=== PATIENT | female | born 1945 | race Caucasian/White ===

== ENCOUNTER → 2017-01-18 | Outpatient (CLI) | payer MEDICARE, OTHER | END | disposition home or self-care (01) | LOC: GMAJ 10:31 | PROVIDERS: ATTEND Family Medicine | DX: E03.9 Hypothyroidism, unspecified (principal) ==

== ENCOUNTER → 2017-03-06 | Outpatient (CLI) | payer MEDICARE, OTHER | END | disposition home or self-care (01) | LOC: GMAJ 10:45 | PROVIDERS: ATTEND Family Medicine | DX: E03.9 Hypothyroidism, unspecified (principal) ==

== ENCOUNTER → 2017-08-02 | Outpatient (CLI) | payer MEDICARE, OTHER | LOC: GMAJ 15:09 | PROVIDERS: ATTEND Family Medicine | DX: J02.9 Acute pharyngitis, unspecified (principal) ==

== ENCOUNTER → 2018-01-25 | Outpatient (CLI) | payer MEDICARE, OTHER | LOC: GMAJ 10:35 | PROVIDERS: ATTEND Family Medicine | DX: E03.9 Hypothyroidism, unspecified (principal) ==

== ENCOUNTER → 2018-03-13 | Outpatient (CLI) | payer MEDICARE, OTHER | LOC: GMAJ 11:09 | PROVIDERS: ATTEND Family Medicine | DX: E03.9 Hypothyroidism, unspecified (principal) ==

== ENCOUNTER → 2018-04-24 | Outpatient (CLI) | payer MEDICARE, OTHER | LOC: GMAJ 11:26 | PROVIDERS: ATTEND Family Medicine | DX: E03.9 Hypothyroidism, unspecified (principal) ==

== ENCOUNTER → 2018-06-25 | Outpatient (CLI) | payer MEDICARE, OTHER | LOC: GMAJ 10:38 | PROVIDERS: ATTEND Family Medicine | DX: E03.9 Hypothyroidism, unspecified (principal) ==

== ENCOUNTER → 2019-02-25 | Outpatient (CLI) | payer MEDICARE, OTHER | LOC: GMAJ 10:27 | PROVIDERS: ATTEND Family Medicine | DX: E78.00 Pure hypercholesterolemia, unspecified (principal); E03.9 Hypothyroidism, unspecified ==

== ENCOUNTER → 2020-03-04 | Outpatient (CLI) | payer MEDICARE, OTHER | LOC: GMAJ 10:27 | PROVIDERS: ATTEND Family Medicine | DX: E03.9 Hypothyroidism, unspecified (principal); E78.00 Pure hypercholesterolemia, unspecified ==

== ENCOUNTER → 2020-06-25 | Outpatient (CLI) | payer MEDICARE, OTHER ==
--- NOTE | 2020-06-26 13:04 | MRI ---
EXAM DESCRIPTION: Lumbar Spine w/o Contrast : Magnetic Resonance Imaging. CLINICAL HISTORY: OTHER SPONDYLOSIS WITH RADICULOPATHY, LUMBAR REGION COMPARISON: Radiographs lumbar spine June 23 TECHNIQUE: Multiplanar, multiple standard sequences, non contrast MRI, lumbar spine. FINDINGS: L5-S1: The disc is well visualized on axial T2 series 501, image 3. Disc desiccation and minimal disc space loss. Grade 1 anterolisthesis 5 mm. Posterior bulging with superior migration of the uncovered disc. Hypertrophic degenerative changes in the facet joints and posterior flavum ligaments (canal elements). AP canal diameter 7.2 mm. Bilateral foraminal stenosis, more severe on the left. Bilateral effacement of the subarticular recesses, more on the left with encroachment by left facet joint spur. . L4-L5: Disc desiccation with mild right disc space loss and moderate disc space loss on the left. Modic type II endplate changes. Posterior broad-based bulge with endplate and 2.5 mm retrolisthesis. Anterior bulge in the anterior bridging. Moderate narrowing right foramen and left foraminal stenosis. Hypertrophic changes in the bilateral canal limits more on the left with mass effect on the left thecal sac. AP canal diameter 10 mm. L3-L4: Disc desiccation and minimal disc space loss in the midline and to the right. Right paracentral protrusion of the distal 6 mm with inferior extrusion 8 mm to the right of midline effacing the right subarticular recess and abutting the right L4 nerve. Hypertrophic changes in the bilateral canal elements. AP canal diameter 9 mm to the left of midline. Minimal foraminal narrowing on the right and mild foraminal narrowing on the left. L2-L3: Disc desiccation and disc space loss with anterior bulging and endplate ridging. Retrolisthesis 5.5 mm. Disc is migrated inferiorly in the midline abutting the bilateral subarticular recesses. Mild bilateral foraminal narrowing. Hypertrophic changes of the bilateral canal elements. AP canal diameter 9.8 mm. L1-L2: Disc desiccation and minimal disc space loss. Anterior bulging and endplate ridging. Retrolisthesis 3.8 mm with minimal posterior disc bulge. Hypertrophic changes in the bilateral canal elements minimal. AP canal diameter within normal range. Conus terminates just above the disc space. Circumscribed hypointense T1 and T2 and flair lesion in the right L1 vertebral body. No marrow edema. T12-L1: Disc desiccation and minimal disc space loss more in the midline into the right with anterior moderate endplate reactive changes, disc bulging and endplate ridging. An active Schmorl's nodes in superior and inferior endplate. No significant bulging posterior. Canal elements are unremarkable. Left foramen patent and trace amount of right foraminal narrowing. T12-L3 levoscoliosis. Paravertebral soft tissues paraspinal muscle atrophy.. Distal cord normal signal and caliber. Normal marrow signal in the remaining vertebral bodies and the posterior elements. Vertebral bodies are not compressed at any level. IMPRESSION: 1. Multiple levels are desiccated discs, multilevel spondylosis, multilevel hypertrophic facet arthrosis and flava ligamentum thickening. 2. Multifactorial central canal stenosis L5-S1 and bilateral foraminal stenosis, more severe on the left. Probable subarticular recess stenosis by bulging disc and facet spur. Correlate for radiculopathy bilateral L5 and left S1. 3. Multifactorial mild central canal stenosis L4-L5 with right posterior disc protrusion and inferior extrusion encroaching on the right subarticular recess and right L5 nerve. Mild central canal stenosis. Borderline multifactorial mild central canal stenosis L4-L5. 4. Please refer to FINDINGS for discussion of results at other disc space levels.. Electronically signed by: Nasir Chopra MD 06/26/2020 1:03 PM [facility]
== END ==
LOC: MRI 13:52
PROVIDERS: ATTEND Family Medicine
DX: M47.26 Other spondylosis with radiculopathy, lumbar region (principal); M51.16 Intervertebral disc disorders with radiculopathy, lumbar region; M48.07 Spinal stenosis, lumbosacral region; M48.062 Spinal stenosis, lumbar region with neurogenic claudication; M51.15 Intervertebral disc disorders with radiculopathy, thoracolumbar region; M41.9 Scoliosis, unspecified; M43.16 Spondylolisthesis, lumbar region

== ENCOUNTER 2020-07-27 05:34 | Day surgery (SDC) | payer MEDICARE, OTHER ==
[2020-07-27] MEDS ORDERED: BETAMETHASONE ACETATE/BETAMETH 6 MG/ML VIAL IM ONE (07:03)
[2020-07-27] MEDS ORDERED: LIDOCAINE 1% 10 ML VIAL INJ ONE (07:03)
[2020-07-27] MEDS ORDERED: DEXAMETHASONE INJ 10 MG/ML VIAL ONE (07:03)
[2020-07-27] MEDS ORDERED: BUPIVACAINE 0.5% 30 ML VIAL INJ ONE (07:04)
[2020-07-27 11:21] VITALS: BP 120/82; TEMP 97.1; O2SAT 99
== END 2020-07-27 09:44 | disposition home or self-care (01) ==
LOC: AMB 05:34
PROVIDERS: ATTEND Family Medicine Sports Medicine
DX: M54.5 Low back pain (principal); M47.896 Other spondylosis, lumbar region; K21.9 Gastro-esophageal reflux disease without esophagitis; E78.5 Hyperlipidemia, unspecified; E03.9 Hypothyroidism, unspecified; Z96.653 Presence of artificial knee joint, bilateral; Z90.710 Acquired absence of both cervix and uterus; Z88.5 Allergy status to narcotic agent; Z88.8 Allergy status to other drugs, medicaments and biological substances; Z79.899 Other long term (current) drug therapy